=== PATIENT | male | born 1960 | race Caucasian/White ===

== ENCOUNTER 2019-06-01 06:08 | Inpatient (IN) ==
--- NOTE | 2019-05-19 10:16 | PAT Medication Instructions ---
Medication Instructions Date of Service May 19, 2019 Home Medications cyanocobalamin (vitamin B-12) [Vitamin B-12] 1,000 mcg PO QAM dicyclomine 20 mg PO BID docusate sodium 100 mg PO DAILY PRN escitalopram oxalate 20 mg PO QAM linagliptin [Tradjenta] 5 mg PO QAM lorazepam 1 mg PO QAM lorazepam 2 mg PO QPM melatonin 20 mg PO HS metformin 1,000 mg PO BID montelukast 10 mg PO QAM omeprazole 40 mg PO QAM phenylephrine-cocoa butter [Preparation H(pe,cb)] 1 supp [place] BID PRN valacyclovir [Valtrex] 1,000 mg PO DAILY PRN zolpidem 10 mg PO HS Continue as directed valacyclovir [Valtrex] 1,000 mg PO DAILY PRN .(if needed) DO NOT take the morning of surgery cyanocobalamin (vitamin B-12) [Vitamin B-12] 1,000 mcg PO QAM dicyclomine 20 mg PO BID docusate sodium 100 mg PO DAILY PRN linagliptin [Tradjenta] 5 mg PO QAM metformin 1,000 mg PO BID montelukast 10 mg PO QAM phenylephrine-cocoa butter [Preparation H(pe,cb)] 1 supp [place] BID PRN Take morning of surgery With a small sip of water, OTHERWISE NOTHING TO EAT OR DRINK AFTER MIDNIGHT: escitalopram oxalate 20 mg PO QAM lorazepam 1 mg PO QAM omeprazole 40 mg PO QAM Take evening before surgery dicyclomine 20 mg PO BID docusate sodium 100 mg PO DAILY PRN (if needed) lorazepam 2 mg PO QPM melatonin 20 mg PO HS metformin 1,000 mg PO BID phenylephrine-cocoa butter [Preparation H(pe,cb)] 1 supp [place] BID PRN (if needed) zolpidem 10 mg PO HS Other Notes If you have any questions please call us at [phone] or [phone] or [phone] or [phone]
--- NOTE | 2019-05-20 11:50 | Anesthesiology Consultation ---
Date of Service May 20, 2019 Assessment & Plan (1) Encounter for pre-operative examination: - Check BSG AM DOS Chart Review Chart Review: Pending: Refer to Additional Notes / Consult section (pending preop testing (labs, EKG, CXR)) and Patient seen in Pre Admission Testing Teaching & Discussion Pre-Anesthesia Teaching/Discussion Notes: Instructed NPO after midnight before surgery,except medications with 15 cc of water. Medication instructions provided according to the PAT guidelines. History Surgery Operation Date: 06/01/19 10:25 Proposed Procedures p L4-S1 Posterior Lumbar Fusion, Possible L3-L4, Possible Interobdy Fusion, Spinal Cord Monitoring - Dhruv Womack, Height/Weight Height: 5 ft 6 in Weight: 97.4 kg Allergies Allergy/AdvReac Type Severity Reaction Status Date / Time Sulfa (Sulfonamide Allergy Unknown RASH, Verified 05/20/19 11:46 Antibiotics) ELEVATED TEMP, DYSPNEA mesalamine [From Lialda] AdvReac Unknown RASH, Verified 05/20/19 11:46 ELEVATED TEMP, DYSPNEA NSAIDS (Non-Steroidal AdvReac Unknown AVOIDS D/T Verified 05/20/19 11:46 Anti-Inflamma "STOMACH ISSUES" Medications Home Medications Medication Instructions Recorded Confirmed Last Taken cyanocobalamin (vitamin B-12) 1,000 mcg PO QAM 05/11/19 05/11/19 Unknown [Vitamin B-12] dicyclomine 20 mg PO BID 05/11/19 05/11/19 Unknown docusate sodium 100 mg PO DAILY PRN 05/11/19 05/11/19 Unknown escitalopram oxalate 20 mg PO QAM 05/11/19 05/11/19 Unknown linagliptin [Tradjenta] 5 mg PO QAM 05/11/19 05/11/19 Unknown lorazepam 1 mg PO QAM 05/11/19 05/11/19 Unknown lorazepam 2 mg PO QPM 05/11/19 05/11/19 Unknown melatonin 20 mg PO HS 05/11/19 05/11/19 Unknown metformin 1,000 mg PO BID 05/11/19 05/11/19 Unknown montelukast 10 mg PO QAM 05/11/19 05/11/19 Unknown omeprazole 40 mg PO QAM 05/11/19 05/11/19 Unknown phenylephrine-cocoa butter 1 supp [place] BID PRN 05/11/19 05/11/19 Unknown [Preparation H(pe,cb)] valacyclovir [Valtrex] 1,000 mg PO DAILY PRN 05/11/19 05/11/19 Unknown zolpidem 10 mg PO HS 05/11/19 05/11/19 Unknown Past Medical History Medical History Acid reflux controlled Anxiety Chronic back pain Diabetes mellitus, type 2 NIDDM Glaucoma Hiatal hernia 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" Hx of ulcerative colitis stable Obesity Sleep apnea CPAP Urinary urgency Exercise / Class Metabolic Activity III < 4 Walking/Shop/Light housework Past Family History Family History Grandfather (Paternal) Family history of diabetes mellitus Father Family history of diabetes mellitus Other FHx: cancer of digestive organ Past Surgical History Surgical History History of colonoscopy History of meniscectomy of left knee Hx of anterior cruciate ligament surgery LEFT Hx of tonsillectomy Past Anesthesia History No Hx of Anesthesia Complications and No Family Hx of Anesthesia Complications History of PONV No Hx of PONV and No Hx of Motion Sickness Social History Smoking Status: Never smoker Do You Dip or Chew Tobacco: Yes (1-2 boxes/week- advised NPO) Hx Alcohol Use: Yes Alcohol type: beer, wine and hard liquor alcohol intake frequency: holidays/special occasions only Hx Substance Use: No substance use type: does not use Review of Systems Reflux controlled. Patient denies chest pain, shortness of breath, cough, wheezing, palpitations. Physical Exam Vital Signs VITALS BP 142/88 P 86 TEMP 97.8 SP02 98%RA RESP 18 PHYSICAL Full neck and c-spine range of motion. Full TMJ range of motion. TMD 3.5 finger breaths Mallampati Score 1 Dentition: missing sides, upper front cap Lungs: clear throughout to auscultation Cardiac: regular rate and rhythm, no murmurs noted Spine: normal Carotid arteries: negative bruit Extremities: no edema Testing Laboratory Results 05/19/19 UA negative nitrite/leuk esterase URINE CULTURE no growth HGBA1C 6.6%
--- NOTE | 2019-05-20 12:35 | XRay Report ---
XR chest Pre-admission PA/Lat CLINICAL HISTORY: pat preoperative COMPARISON STUDY: No previous studies for comparison. FINDINGS: The bones soft tissues and hemidiaphragms are normal. The cardiomediastinal silhouette is n ormal. The lungs are clear. The pulmonary vasculature is normal. IMPRESSION: Negative chest. The above report was generated using voice recognition software. It may contain grammatical, syntax or spelling errors. Electronically signed by: Timo Lara M.D. 05/20/2019 12:33 PM
[2019-05-20 12:58] LABS: Basophils # (auto) 0.03 K/uL (0-0.2); Basophils % (auto) 0.4 %; Eosinophils # (auto) 0.14 K/uL (0-0.5); Eosinophils % (auto) 1.9 %; Hematocrit (blood only) 41.5 % (42-52); Hemoglobin 13.9 g/dL (14.0-18.0); Immature Granulocytes # (auto) 0.04 K/uL (0.00-0.02); Immature Granulocytes % (auto) 0.6 %; Lymphocytes # (auto) 1.88 K/uL (1.2-3.4); Lymphocytes % (auto) 26.1 %; Mean Corpuscular Hemoglobin 28.8 pg (25-34); Mean Corpuscular Hgb Conc 33.5 g/dL (32-36); Mean Corpuscular Volume 85.9 fL (80-100); Mean Platelet Volume 10.9 fL (7.4-10.4); Monocytes # (auto) 0.58 K/uL (0.11-0.59); Monocytes % (auto) 8.1 %; Neutrophils # (auto) 4.52 K/uL (1.4-6.5); Neutrophils % (auto) 62.9 %; Platelet Count 227 K/uL (130-400); RDW Coefficient of Variation 13.4 % (11.5-14.5); RDW Standard Deviation 42.3 fL (36.4-46.3); Red Blood Count 4.83 M/uL (4.7-6.1); White Blood Count 7.19 K/uL (4.8-10.8)
[2019-05-20 13:06] LABS: BUN Creatinine Ratio 14.8 (10-20); Calcium 9.7 mg/dl (8.5-10.1); Creatinine Clr Calc Pharmacy 81.2 ml/min; Est GFR (African American) 87.6; Est GFR (Non-African American) 75.6; Potassium 4.1 mmol/L (3.5-5.1)
[2019-05-20 13:12] LABS: Partial Thromboplastin Time 25.9 Seconds (21.0-31.0); Prothrombin Time 10.1 Seconds (9.0-12.0)
[~2019-06-01 06:08] MED LIST: ACETAMINOPHEN 500 MG TAB PO SCH; CEFAZOLIN 2000MG 2,000 MG/15 ML SYR IV SCH; CeleBREX 200 MG CAP PO SCH; GABAPENTIN 600 MG DOSE PO SCH; LR 15ML/HR IV SCH
[2019-06-01] MEDS ORDERED: NEOSTIGMINE METHYLSULFATE 1 MG/ML 10ML VIAL ONE (06:42)
[2019-06-01] MEDS ORDERED: GLYCOPYRROLATE 0.2 MG/ML VIAL ONE ×2 (06:42→08:51)
[2019-06-01] MEDS ORDERED: fentaNYL citrate 100 MCG/2 ML VIAL ONE (06:42)
[2019-06-01] MEDS ORDERED: ONDANSETRON INJ 2 MG/ML 2 ML VIAL ONE ×2 (06:42→10:21)
[2019-06-01] MEDS ORDERED: LIDOCAINE HCL 2% 2 ML VIAL/AMP(20MG/ML) INFIL ONE (06:42)
[2019-06-01] MEDS ORDERED: DEXAMETHASONE SOD INJ 4 MG/ML VIAL ONE (06:42)
[2019-06-01] MEDS ORDERED: LARYING-O-JET KIT (LTA) ONE (06:42)
[2019-06-01] MEDS ORDERED: PROPOFOL IV EMULSION 10 MG/ML 20 ML VIAL IV ONE (06:42)
[2019-06-01] MEDS ORDERED: ROCURONIUM BROMIDE 10 MG/ML 5 ML VIAL ONE ×2 (06:42→08:18)
[2019-06-01] MEDS ORDERED: KETAMINE HCL INJ 50 MG/ML 10 ML VIAL ONE (06:43)
[2019-06-01] MEDS ORDERED: HYDROmorphone INJ 2 MG/ML SYR/VIAL ONE (06:43)
[2019-06-01] MEDS ORDERED: MIDAZOLAM HCL 1 MG/ML 2ML VIAL ONE (06:44)
[2019-06-01] MEDS ORDERED: BACITRACIN INJ 50,000 UNIT VIAL ONE (06:53)
[2019-06-01] MEDS ORDERED: BUPIVACAINE/EPINEPHRINE 0.5% MPF 1:200,000 30 ML VIAL ONE (06:54)
--- NOTE | 2019-06-01 07:30 | History & Physical Bridge Note ---
Date of Service June 01, 2019 History & Physical Bridge Note I have examined the patient, reviewed the History & Physical and in the interval since the performance of the History & Physical I have noted the following changes of clinical significance: no changes noted
--- NOTE | 2019-06-01 07:31 | History & Physical Report ---
Date of Service June 01, 2019 Assessment & Plan (1) Spinal stenosis, lumbar region with neurogenic claudication: Posterior lumbar fusion L4-S1 possible L3-L4 possible interbody fusion. Present on Admission?: Yes History of Present Illness Chief Complaint: Back and leg pain Primary Care Provider: Agata Wellington This is a 59-year-old male presents with chronic persistent back and leg pain. After failing extensive course of nonoperative care is here for surgical intervention. Allergies Allergy/AdvReac Type Severity Reaction Status Date / Time Sulfa (Sulfonamide Allergy Unknown RASH, Verified 06/01/19 06:26 Antibiotics) ELEVATED TEMP, DYSPNEA mesalamine [From Lialda] AdvReac Unknown RASH, Verified 06/01/19 06:26 ELEVATED TEMP, DYSPNEA NSAIDS (Non-Steroidal AdvReac Unknown AVOIDS D/T Verified 06/01/19 06:26 Anti-Inflamma "STOMACH ISSUES" Home Medications Home Medications Medication Instructions Recorded Confirmed Type cyanocobalamin (vitamin B-12) 1,000 mcg PO QAM 05/11/19 06/01/19 History [Vitamin B-12] dicyclomine 20 mg PO BID 05/11/19 06/01/19 History docusate sodium 100 mg PO DAILY PRN 05/11/19 06/01/19 History escitalopram oxalate 20 mg PO QAM 05/11/19 06/01/19 History linagliptin [Tradjenta] 5 mg PO QAM 05/11/19 06/01/19 History lorazepam 1 mg PO QAM 05/11/19 06/01/19 History lorazepam 2 mg PO QPM 05/11/19 06/01/19 History melatonin 20 mg PO HS 05/11/19 06/01/19 History metformin 1,000 mg PO BID 05/11/19 06/01/19 History montelukast 10 mg PO QAM 05/11/19 06/01/19 History omeprazole 40 mg PO QAM 05/11/19 06/01/19 History phenylephrine-cocoa butter 1 supp [place] BID PRN 05/11/19 06/01/19 History [Preparation H(pe,cb)] valacyclovir [Valtrex] 1,000 mg PO DAILY PRN 05/11/19 06/01/19 History zolpidem 10 mg PO HS 05/11/19 06/01/19 History fluticasone propionate [Flonase 2 spray INTRANASAL DAILY 06/01/19 06/01/19 History Allergy Relief] Past Med/Surg History Medical History Acid reflux controlled Anxiety Chronic back pain Diabetes mellitus, type 2 NIDDM Glaucoma Hiatal hernia History of West Nile virus infection 2004 in "remission" Hx of ulcerative colitis stable Obesity Sleep apnea CPAP Urinary urgency Surgical History History of colonoscopy History of meniscectomy of left knee Hx of anterior cruciate ligament surgery LEFT Hx of tonsillectomy Family History Grandfather (Paternal) Family history of diabetes mellitus Father Family history of diabetes mellitus Other FHx: cancer of digestive organ Social History Preferred Language: [place] Communication Ability: Effective Beliefs That Will Affect Care: None Current Living Situation: Spouse Feels Safe at Home: Yes Safety Concerns: Feels Safe At This Time Smoking Status: Never smoker Do You Dip or Chew Tobacco: Yes (1-2 boxes/week- advised NPO) ; Second Hand Exposure: Yes (SOME - SON LIVES WITH THEM) ; Hx Alcohol Use: Yes Alcohol type: beer, wine and hard liquor Hx Substance Use: No Physical Exam Physical Exam: Patient is alert and oriented neurologically intact. Results & Data Vital Signs (Past 12 Hours) Vital Signs Temp Pulse Resp BP Pulse Ox 06/01/19 06:30 36.9 C 87 18 138/89 96
[2019-06-01] MEDS ORDERED: FLOSEAL HEMOSTATIC MATRIX 5ML TOP ONE (08:05)
[2019-06-01] MEDS ORDERED: BUPIVACAINE/EPINEPHRINE 0.25% 1:200,000 30 ML VIAL INJ ONE (08:15)
[2019-06-01] MEDS ORDERED: BUPIVACAINE/EPINEPHRINE 0.5% MPF 1:200,000 10 ML VIAL INJ ONE (08:22)
[2019-06-01] MEDS ORDERED: PHENYLEPHRINE 100MCG/ML 5ML SYR ONE (08:51)
--- NOTE | 2019-06-01 09:52 | Operative Report ---
Post Operative Report Pre & Post Diagnosis Operation Date: 06/01/19 07:45 Pre-Op Diagnosis: Lumbar spinal stenosis with neurogenic claudication. Lumbar spondylolisthesis L5-S1 Post-Op Diagnosis: Same I identified the patient and participated in the time-out.: Yes Procedure Operation Date: 06/01/19 07:45 Actual Procedures #1 lumbar decompression with bilateral medial facetectomies and foraminotomies L3-4 L4-5 L5-S1. #2 posterior spinal fusion L4-5 L5-S1. #3 placement posterior instrumentation L4-5 L5-S1. #4 interbody fusion L4-5 L5-S1. #5 placed a peek cage 12 x 26 mm at L4-5 and 11 x 26 mm at L5-S1. #6 placement of local autograft in the posterior lateral gutters. #7 placement infuse collagen sponge bone mass graft in the posterior lateral gutters and ostial amp and interbody space. Surgeon Dhruv Womack, DO Bulldozer/Loader/Compactor/Scraper Michelle Carvalho Estimated Blood Loss 300 Findings See Below The patient is 5 foot 6 inches tall weighing over 97 kg with a BMI in excess of 34. Patient's body habitus did add significant technical difficulty out throughout the procedure and at least 25% increase in operative time. Specimens None Indications This is a 59-year-old male presents with above-mentioned diagnosis after failing extensive course of nonoperative care is here for surgical intervention. Description of Procedure Patient was met with identified and informed consent obtained. Patient was then taken to the operative suite underwent intubation placed in a prone position on the Joseph table on top of the Bobo frame. All bony prominences well-padded eyes inspected to ensure no external pressure placed upon. This point lumbar spine was prepped and draped in normal sterile fashion. Sharp dissection with the assistance of Bovie cautery was performed down to and exposing the lamina and transverse processes of L4-L5 and the sacral ala bilaterally. From a caudal cephalad fashion complete laminectomy of L5 L4 and partial laminectomy of L3 was performed including medial facetectomies and foraminotomies addressing severe stenosis. Pedicle screws were then placed in L4 and L5 and S1 levels bilaterally with assistance of fluoroscopy the purposes milan placed. By way of a trans-foraminal approach on the left complete discectomy of L5-S1 is performed endplates curetted to subcortical bleeding bone and a 11 x 26 mm peek cage filled with ostium bone graft tapped in position. Then proceeded to L4-[address] of a trans-foraminal approach on the left complete discectomy was performed endplates curetted to subcortical being bone and a 12 x 26 mm peek cage filled with ostium bone graft tapped in position. The rods were then alli d in final position bilaterally. The transverse processes of L4-L5 and S1 levels burred to subcortical being bone. Infuse collagen sponge master graft and local autograft placed in the posterior lateral gutters. 15 round GAMAL drain inserted. The incision was then closed with 1 Vicryl in the fascia 2-0 Vicryl substantially and 4 Monocryl for final skin closure. Steri-Strips dressings placed. Patient awakened taken to PACU stable condition. Please note spinal cord monitoring was utilized that the procedure no changes noted. Lastly Michelle Carvalho was present all the entire procedure involved in patient positioning complex portions of the surgery and final skin closure. I attest to the content of the Intraoperative Record and any orders documented therein. Any exceptions are noted below.
--- NOTE | 2019-06-01 09:57 | Fluoroscopy Report ---
FL lumbar spine 2-3V CLINICAL HISTORY: L4-S1 FUSION POSSIBLE L3-L4 COMPARISON STUDY: None FLUOROSCOPY TIME: 34 seconds. NUMBER OF FLUOROSCOPIC IMAGES: 2 FINDINGS: There are postsurgical changes of an L4-5 and L5-S1 discectomy and interbody fusion. There is posterior pedicle screw fixation. There is a grade 1 spondylolisthesis of L5 on S1. There is a rad iopaque density projects over the surgical site, possibly secondary to a sponge. IMPRESSION: Postsurgical changes of an L4-S1 spinal decompression and fusion. Electronically signed by: Aldo Nava M.D. 06/01/2019 9:56 AM
[2019-06-01] MEDS ORDERED: ONDANSETRON INJ 2 MG/ML 2 ML VIAL IV PRN ×2 (10:21→11:20)
[2019-06-01] MEDS ORDERED: HYDROmorphone INJ 1 MG/ML SYRINGE ONE (10:21)
[2019-06-01] MEDS ORDERED: LABETALOL HCL IV 5 MG/ML 20ML IV PRN (10:21)
[2019-06-01] MEDS ORDERED: PROMETHAZINE HCL 12.5 MG in SODIUM CHLORIDE 0.9% 50 ML IV PRN ×2 (10:21→11:20)
[2019-06-01] MEDS ORDERED: ATROPINE SULFATE 0.1 MG/ML 10ML SYR IV PRN (10:21)
[2019-06-01] MEDS: HYDROmorphone INJ 1 MG/ML SYRINGE IV PRN ×2 (10:22→10:27)
--- NOTE | 2019-06-01 10:47 | Anesthesiology Progress Note ---
Date of Service June 01, 2019 Anesthesia Post Procedure Vital Signs Vital Signs: Temp Pulse Pulse Resp BP BP Pulse Ox 06/01/19 10:40 36.6 C 95 H 13 136/91 96 06/01/19 10:30 92 H 16 137/94 98 06/01/19 10:20 88 17 138/86 95 06/01/19 10:10 90 17 126/88 98 06/01/19 10:03 37.2 C 83 15 126/71 97 06/01/19 06:30 36.9 C 87 18 138/89 96 Pain Intensity Lower Back: Pain Intensity: 3 Back: Pain Intensity: 5 Transfer of Care Handoff Completed per policy Notes Mental Status: alert / awake / arousable Patient Amnestic to Procedure: Yes Nausea / Vomiting: adequately controlled Pain: adequately controlled Airway Patency, RR, SpO2: stable & adequate BP & HR: stable & adequate Hydration State: stable & adequate Anesthetic Complications: no major complications apparent
[2019-06-01] MEDS ORDERED: MAGNESIUM HYDROXIDE SUSP 30 ML UDC PO PRN (11:20)
[2019-06-01] MEDS ORDERED: bisacodyL 10 MG SUPP PR PRN (11:20)
[2019-06-01] MEDS ORDERED: LORazepam 0.5 MG/1 ML VIAL IV PRN (11:20)
[2019-06-01] MEDS ORDERED: HYDROmorphone INJ 0.5 MG/0.5 ML SYR IV PRN (11:20)
[2019-06-01] MEDS ORDERED: ONDANSETRON 4 MG OD TAB PO PRN (11:20)
[2019-06-01] MEDS ORDERED: HYDROmorphone INJ 1 MG/ML SYRINGE IV PRN (11:20)
[2019-06-01] MEDS ORDERED: SOD PHOSPHATE/SOD BIPHOSPHATE ENEMA 132 ML BTL PR PRN (11:20)
[2019-06-01] MEDS ORDERED: FAMOTIDINE 20 MG TAB PO PRN (11:20)
[2019-06-01] MEDS ORDERED: ALUMINUM/MAGNESIUM SUSP 30 ML UDC PO PRN (11:20)
[2019-06-01] MEDS ORDERED: DO NOT ADMINISTER FLU VACCINE PRN (11:20)
[2019-06-01] MEDS ORDERED: ACETAMINOPHEN 500 MG TAB PO PRN (11:20)
[2019-06-01] MEDS ORDERED: DO NOT ADMINISTER PNEUMOCOCCAL VACCINE PRN (11:20)
[2019-06-01] MEDS ORDERED: ACETAMINOPHEN 1,000 MG/100 ML VIAL IV PRN (11:20)
[2019-06-01] MEDS ORDERED: LORazepam 0.5 MG TAB PO PRN (11:20)
[2019-06-01] MEDS ORDERED: METOCLOPRAMIDE HCL INJ 5 MG/ML 2 ML VIAL IV PRN (11:20)
[2019-06-01] MEDS ORDERED: NALOXONE HCL 0.4 MG/1 ML VIAL/CARP IV PRN (11:20)
[2019-06-01] MEDS ORDERED: PHARMACY GLYCEMIC MGMT CONSULT PRN (12:01)
--- NOTE | 2019-06-01 12:16 | Pharmacy Report ---
Glycemic Control Consultation - Date of Service June 01, 2019 - Scope Scope: Glycemic Pharmacist consulted for glycemic control and to write orders per [facility] inpatient glycemic control protocol - Objective Weight: 97.386 kg Accuchecks BSG (last 24hrs): 06/01/19 06/01/19 06:37 10:05 POC Glucose 111 H 221 H - Recent Pertinent Medications Outpatient Anti-diabetic Regimen: * Metformin 1 g po BID * Linagliptin 5 mg po qAM * A1c ordered for 06/02/19 Risk Factors for Insulin Resistance: * Steroids: dexamethasone 8 mg IV preop (vended @ 0642 and not returned to [email or web address] therefore assume was administered) * Infection: cefazolin periop * Recent Surgery: POD 0 s/p lumbar decompression/fusion * Diet: T2DM - Assessment & Plan Assessment & Plan: ASSESSMENT: * 59 yo M with T2DM with unknown outpatient control on two oral agents as an outpatient * Pt is maintained on oral antidiabetic agents as an outpatient * Oral agents are not recommended for inpatient use d/t drug interactions, changing PO intake, and difficulty titrating for acute hyper/hypoglycemia. ADA recommends re-initiating outpatient oral agents 1-2 days prior to discharge if/when appropriate if they were held on admission. * Will hold oral agents for admission and utilize SQ basal bolus insulin regimen which is the recommended regimen for inpatient glycemic control. * Will utilize more stringent goal of 110-140mg/dL as tighter glycemic control is warranted to facilitate wound/infection healing. * Steroid dose this AM anticipated to increase insulin resistance (in addition to physiologic stress due to surgery) * Will initiate Lantus at 0.2 units/kg x1 and provide supplemental Lantus this PM for BSG > 140 mg/dL * Will initiate Novolog at weight-based moderate stress estimate and add an overnight check PLAN FOR INPATIENT GLYCEMIC CONTROL: * Hold outpatient oral diabetes medications. Anticipate ability to resume metformin on POD 2, assuming SCr OK. * Basal insulin: Lantus 20 units SC x1 now. Additional tonight based on BSG. * 0 units for BSG less than 140 mg/dL * 5 units for BSG 140-180 mg/dL * 10 units for BSG 180 mg/dL or greater * Bolus insulin * NovoLog per scale ACHS or Q6hrs while NPO with one overnight check * Goal Range: Low 110 mg/dL - High 140 mg/dL * Correction Factor: 25 mg/dL/unit * Nutritional / Prandial insulin per carb ratio of 1 unit per 8 grams CHO consumed * Please note that the plan above was derived based on current level of insulin resistance and hospital stress. These recommendations are appropriate for inpatient admission only. Plan of care upon discharge will need to be reassessed to avoid potential outpatient hypo/hyperglycemia. Thank you.
[2019-06-01] MEDS ORDERED: CARBOHYDRATES FOR HYPOGLYCEMIA PO PRN (12:30)
[2019-06-01] MEDS ORDERED: DEXTROSE 50% 50 ML SYRINGE IV PRN (12:30)
[2019-06-01] MEDS ORDERED: GLUCOSE 40% GEL 15 GM TUBE PO PRN (12:30)
[2019-06-01] MEDS ORDERED: GLUCOSE 10 TABS/TUBE PO PRN (12:30)
[2019-06-01] MEDS ORDERED: INSULIN GLARGINE SOLOSTAR 100 UNITS/ML 3 ML PEN SC ONE ×2 (12:30→21:00)
[2019-06-01] MEDS ORDERED: GLUCAGON FOR INJ 1 MG VIAL IM PRN (12:30)
[2019-06-01] MEDS: OXYCODONE HCL IR 5 MG TAB (IMMEDIATE RELEASE) PO PRN ×3 (12:55→23:32)
[2019-06-01] MEDS: SODIUM CHLORIDE 0.9% 1000ML 1,000 ML IV SCH ×2 (12:55→21:33)
[2019-06-01] MEDS: INSULIN ASPART 100 UNITS/ML 3 ML PEN SC SCH ×3 (13:39→21:20)
--- NOTE | 2019-06-01 14:41 | Consultation ---
Date of Consultation June 01, 2019 Assessment & Plan (1) Spinal stenosis, lumbar region with neurogenic claudication: s/p lumbar decompression-fusion procedure by Dr Womack today. EBL ~300cc per the op note. Defer pain management, PT/OT, disposition, etc to Dr Womack's team. Agree with labs in am. Agree with miralax for bowel regimen (pt is distended on exam today but will follow for now; no nausea/emesis thus far). PT, OT as ordered. (2) NEYMAR (obstructive sleep apnea): Pt brought home CPAP in - I placed order to allow such. (3) DM w/o complication type II: Pharmacy consulted by Dr Womack's team for glycemic management. Oral agents held. A1C pending for the am. Anticipate high BSGs minimum 24 hours due to steroids, perioperative stress, etc. (4) Obesity (BMI 30-39.9): BMI 34.7. (5) Benzodiazepine dependence: PDMP shows he receives #90 of 1mg ativan tabs each month. Continue usual home regimen. (6) Restless leg syndrome: Check iron studies in am. Acute blood loss anemia will make RLS symptoms worse. 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 (8) GERD (gastroesophageal reflux disease): Cont PPI (9) Mood disorder: Lexapro 20mg daily. Ativan BID. (10) DVT prophylaxis: TEDS/SCDs Thank you for the consult. Will follow with you. History of Present Illness Requesting Physician: Maxwell Womack DO Reason for Consultation: post-op medical [place] Attending Physician: Dhruv Womack DO History of Present Illness 59yo male with T2DM, NEYMAR, obesity, chronic benzodiazepine use, and ulcerative colitis currently not on treatment who presented today for elective lumbar back surgery by Dr Womack. Surgery went well and EBL was ~300cc. Patient states that his pre-op b/l leg pain and foot pain are already better. He c/o "fatigue" in his back but no other complaints. Denies cp, dyspnea, cough, abd pain, nausea or vomiting. He asks numerous questions about his post-op course, when he can move/walk, etc. He is hopeful he can return home at discharge. He brought his CPAP from home. Allergies Allergy/AdvReac Type Severity Reaction Status Date / Time Sulfa (Sulfonamide Allergy Unknown RASH, Verified 11/04/19 06:26 Antibiotics) ELEVATED TEMP, DYSPNEA mesalamine [From Lialda] AdvReac Unknown RASH, Verified 06/01/19 06:26 ELEVATED TEMP, DYSPNEA NSAIDS (Non-Steroidal AdvReac Unknown AVOIDS D/T Verified 06/01/19 06:26 Anti-Inflamma "STOMACH ISSUES" Home Medications Home Medications Medication Instructions Recorded Confirmed Type cyanocobalamin (vitamin B-12) 1,000 mcg PO QAM 05/11/19 06/01/19 History [Vitamin B-12] dicyclomine 20 mg PO BID 05/11/19 06/01/19 History docusate sodium 100 mg PO DAILY PRN 05/11/19 06/01/19 History escitalopram oxalate 20 mg PO QAM 05/11/19 06/01/19 History linagliptin [Tradjenta] 5 mg PO QAM 05/11/19 06/01/19 History lorazepam 1 mg PO QAM 05/11/19 06/01/19 History lorazepam 2 mg PO QPM 05/11/19 06/01/19 History melatonin 20 mg PO HS 05/11/19 06/01/19 History metformin 1,000 mg PO BID 05/11/19 06/01/19 History montelukast 10 mg PO QAM 05/11/19 06/01/19 History omeprazole 40 mg PO QAM 05/11/19 06/01/19 History phenylephrine-cocoa butter 1 supp ID BID PRN 05/11/19 06/01/19 History [Preparation H(pe,cb)] valacyclovir [Valtrex] 1,000 mg PO DAILY PRN 05/11/19 06/01/19 History zolpidem 10 mg PO HS 05/11/19 06/01/19 History fluticasone propionate [Flonase 2 spray INTRANASAL DAILY 06/01/19 06/01/19 History Allergy Relief] Patient History Medical History Anxiety Chronic back pain Diabetes mellitus, type 2 NIDDM Glaucoma Hiatal hernia 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" Hx of ulcerative colitis stable Restless leg syndrome Sleep apnea CPAP Urinary urgency Acid reflux controlled Obesity Surgical History History of colonoscopy History of meniscectomy of left knee Hx of anterior cruciate ligament surgery LEFT Hx of tonsillectomy Family History Grandfather (Paternal) Family history of diabetes mellitus Father Family history of diabetes mellitus Liver cancer Coronary heart disease Carotid artery disease Mother Alzheimer disease Social History Preferred Language: Grenadian Communication Ability: Effective Beliefs That Will Affect Care: None marital status: Current Living Situation: Spouse Current Living Situation Comment: lives in [place] with ; 2 sons current occupational status: retired current occupation: formerly owned [employer] Feels Safe at Home: Yes Safety Concerns: Feels Safe At This Time Smoking Status: Never smoker Do You Dip or Chew Tobacco: Yes (1-2 boxes/week) ; Second Hand Exposure: Yes (SOME - SON LIVES WITH THEM) ; Hx Alcohol Use: Yes Alcohol type: beer, wine and hard liquor Alcohol Intake Frequency: Holidays/Special Occasions Hx Substance Use: No Review of Systems Constitutional: no fever, no fatigue and no anorexia Eyes: no worsening vision Ear, Nose, Mouth, Throat: no dysphagia Respiratory: no cough, no dyspnea and no dyspnea on exertion Cardiovascular: no chest pain Gastrointestinal: + bloating; no abdominal pain, no nausea and no vomiting Genitourinary: no dysuria Musculoskeletal: + back pain Integumentary: no rash Neurologic: no numbness Psychiatric: + abnormal sleep pattern Endocrine: diabetic - on oral agents only Physical Exam Constitutional: well developed, well nourished and + obese; no acute distress and no altered mental status Eyes: PERRL (lens implants b/l ) ENMT: external ear and nose normal, oropharynx normal tobacco/chew staining on oral mucosa Neck: trachea midline, no thyromegaly prominent submandibular glands b/l Respiratory: normal respiratory effort, lungs clear to auscultation Cardiovascular: Rate/Rhythm: regular rhythm and + tachycardic (borderline) Heart Sounds: normal S1 and normal S2; no murmur Vessels: posterior tibial pulses present and dorsalis pedis pulses present; no JVD Extremities: no edema Gastrointestinal (Abdomen): Inspection/Auscultation: + abdomen distended; + abnormal bowel sounds (decreased) Percussion/Palpation: abdomen nontender and no hepatosplenomegaly Musculoskeletal: SCDs in place on legs; dressings intact with GAMAL drain in place to lumbar spine Skin: no rashes, warm and dry Neurologic: moves all extremities; no focal motor deficits reflexes brisk - patellar Psychiatric: A+Ox3, euthymic affect Lymphatic: no cervical lymphadenopathy Results & Data Vital Signs (Past 12 Hours) Vital Signs Temp Pulse Pulse Pulse Resp BP BP 06/01/19 14:01 97 H 16 123/77 06/01/19 12:57 103 H 16 128/86 06/01/19 11:53 97 H 16 146/94 H 06/01/19 11:26 95 H 16 146/91 H 06/01/19 10:40 36.6 C 95 H 13 136/91 06/01/19 10:30 92 H 16 137/94 06/01/19 10:20 88 17 138/86 06/01/19 10:10 90 17 126/88 06/01/19 10:03 37.2 C 83 15 126/71 06/01/19 06:30 36.9 C 87 18 138/89 Pulse Ox 06/01/19 14:01 98 06/01/19 12:57 98 06/01/19 11:53 98 06/01/19 11:26 97 06/01/19 10:40 96 06/01/19 10:30 98 06/01/19 10:20 95 06/01/19 10:10 98 06/01/19 10:03 97 06/01/19 06:30 96 Laboratory Results Laboratory Results - last 24 hr 06/01/19 06/01/19 06/01/19 06:29 06:37 10:05 POC Glucose 111 H 221 H Blood Type A Positive Antibody Screen NEGATIVE Crossmatch See Detail 06/01/19 12:11 POC Glucose 227 H Blood Type Antibody Screen Crossmatch Diagnostic Findings cxr - preop - no infiltrates ekg - preop - NSR, IRBBB, no ST changes PG Care Time/CCT Total # of Minutes Spent Total Time Spent with Patient: Total time spent is greater than 50% in coordinat ion of care (as documented) at patient's floor/unit and/or counseling patient: (1) DM w/o complication type II Diabetes mellitus ocean transportation intermediary insulin use: without custodial use Qualified Code(s): E11.9 - Type 2 diabetes mellitus without complications (2) Chewing tobacco nicotine dependence Substance use status: uncomplicated Qualified Code(s): F17.220 - Nicotine dependence, chewing tobacco, uncomplicated (3) GERD (gastroesophageal reflux disease) Esophagitis presence: esophagitis presence not specified Qualified Code(s): K21.9 - Gastro-esophageal reflux disease without esophagitis
[2019-06-01] MEDS: TRAMADOL HCL 50 MG TABLET PO PRN (16:10)
[2019-06-01] MEDS: CEFAZOLIN 2000MG 2,000 MG/15 ML SYR IV SCH ×2 (16:11→23:32)
[2019-06-01] MEDS ORDERED: NON-FORMULARY MEDICATION (Melatonin 20 MG) PO SCH (21:00)
[2019-06-01] MEDS: DOCUSATE SODIUM/SENNA 50/8.6MG TAB PO SCH (21:15)
[2019-06-01] MEDS: DICYCLOMINE HCL 10 MG CAP PO SCH (21:17)
[2019-06-01] MEDS: LORazepam 1 MG TAB PO SCH (21:25)
[2019-06-01] MEDS: ZOLPIDEM TARTRATE 10 MG TAB PO SCH (21:25)
[2019-06-02] MEDS ORDERED: INSULIN ASPART 100 UNITS/ML 3 ML PEN SC ONE (02:00)
[2019-06-02] MEDS: OXYCODONE HCL IR 5 MG TAB (IMMEDIATE RELEASE) PO PRN ×4 (03:59→18:10)
[2019-06-02] MEDS: POLYETHYLENE (MIRALAX) 17 GM PACK PO SCH ×3 (05:12→17:20)
[2019-06-02 05:20] LABS: Basophils # (auto) 0.01 K/uL (0-0.2); Basophils % (auto) 0.1 %; Eosinophils # (auto) 0.01 K/uL (0-0.5); Eosinophils % (auto) 0.1 %; Hematocrit (blood only) 34.8 % (42-52); Hemoglobin 11.8 g/dL (14.0-18.0); Immature Granulocytes # (auto) 0.06 K/uL (0.00-0.02); Immature Granulocytes % (auto) 0.4 %; Lymphocytes # (auto) 1.92 K/uL (1.2-3.4); Lymphocytes % (auto) 11.9 %; Mean Corpuscular Hemoglobin 28.5 pg (25-34); Mean Corpuscular Hgb Conc 33.9 g/dL (32-36); Mean Corpuscular Volume 84.1 fL (80-100); Monocytes # (auto) 1.77 K/uL (0.11-0.59); Neutrophils # (auto) 12.38 K/uL (1.4-6.5); Neutrophils % (auto) 76.5 %; Platelet Count 235 K/uL (130-400); RDW Coefficient of Variation 13.2 % (11.5-14.5); RDW Standard Deviation 39.8 fL (36.4-46.3); Red Blood Count 4.14 M/uL (4.7-6.1); White Blood Count 16.15 K/uL (4.8-10.8)
[2019-06-02 05:43] LABS: Estimated Average Glucose 151 mg/dl; Hemoglobin A1C 6.9 % (4.5-5.6)
[2019-06-02 05:52] LABS: Creatinine Clr Calc Pharmacy 83.5 ml/min; Est GFR (African American) 90.7; Est GFR (Non-African American) 78.2; Potassium 4.1 mmol/L (3.5-5.1)
[2019-06-02 05:59] LABS: Ferritin 310.1 ng/ml (8-388)
--- NOTE | 2019-06-02 07:59 | Anesthesiology Progress Note ---
Date of Service June 02, 2019 Anesthesia Post Procedure Vital Signs Vital Signs: Temp Pulse Pulse Resp BP Pulse Ox 06/02/19 07:13 36.9 C 101 H 16 135/80 98 06/02/19 03:48 36.8 C 104 H 17 143/76 H 95 06/01/19 23:37 37.3 C 98 H 18 144/82 H 95 06/01/19 15:25 36.9 C 106 H 16 135/88 96 06/01/19 14:01 97 H 16 123/77 98 06/01/19 12:57 103 H 16 128/86 98 06/01/19 11:53 97 H 16 146/94 H 98 06/01/19 11:26 95 H 16 146/91 H 97 06/01/19 10:40 36.6 C 95 H 13 136/91 96 06/01/19 10:30 92 H 16 137/94 98 06/01/19 10:20 88 17 138/86 95 06/01/19 10:10 90 17 126/88 98 06/01/19 10:03 37.2 C 83 15 126/71 97 Pain Intensity Lower Back: Pain Intensity: 3 Back: Pain Intensity: 5 Notes Mental Status: alert / awake / arousable and participated in evaluation Patient Amnestic to Procedure: Yes Nausea / Vomiting: adequately controlled Pain: adequately controlled Airway Patency, RR, SpO2: stable & adequate BP & HR: stable & adequate Hydration State: stable & adequate Anesthetic Complications: no major complications apparent and Pt Satisfied with anesthetic care
[2019-06-02] MEDS: MONTELUKAST SODIUM 10 MG TABLET PO SCH (08:12)
[2019-06-02] MEDS: PANTOprazole 40 MG TAB PO SCH (08:12)
[2019-06-02] MEDS: CYANOCOBALAMIN 500 MCG TABLET (VITAMIN B-12) PO SCH (08:12)
[2019-06-02] MEDS: DICYCLOMINE HCL 10 MG CAP PO SCH ×2 (08:13→20:05)
[2019-06-02] MEDS: LORazepam 1 MG TAB PO SCH ×2 (08:13→20:54)
[2019-06-02] MEDS: FLUTICASONE PROPIONATE NA SPR 16 GM BTL SCH (08:13)
[2019-06-02] MEDS: ESCITALOPRAM OXALATE 10 MG TAB PO SCH (08:13)
[2019-06-02] MEDS: INSULIN ASPART 100 UNITS/ML 3 ML PEN SC SCH ×4 (08:16→20:51)
[2019-06-02] MEDS ORDERED: INSULIN GLARGINE SOLOSTAR 100 UNITS/ML 3 ML PEN SC ONE ×2 (08:30→21:00)
--- NOTE | 2019-06-02 10:14 | Orthopedic Progress Note ---
Date of Service June 02, 2019 Assessment & Plan (1) Spinal stenosis, lumbar region with neurogenic claudication: At this time we will continue physical therapy monitor his GAMAL output. We are had a discussion with him regarding discharge to a nursing facility versus home health. We will determine his next few days. He is comfortable with home health if this is the best option. Present on Admission?: Yes Subjective Patient's back pain is controlled leg symptoms improved. Physical Exam Physical Exam: Patient is in the chair at the bedside. Is good strength testing. Appears comfortable. Results & Data Vital Signs (Past 12 Hours) Vital Signs Temp Pulse Resp BP Pulse Ox 06/02/19 07:13 36.9 C 101 H 16 135/80 98 06/02/19 03:48 36.8 C 104 H 17 143/76 H 95 06/01/19 23:37 37.3 C 98 H 18 144/82 H 95
--- NOTE | 2019-06-02 12:45 | Hospitalist Progress Note ---
Date of Service June 02, 2019 Assessment & Plan (1) Spinal stenosis, lumbar region with neurogenic claudication: - S/p lumbar decompression-fusion procedure by Dr Womack on 06/01, POD#1. - Pain management per primary team. - PT/OT evaluation for discharge planning. - Bowel regimen. (2) NEYMAR (obstructive sleep apnea): - Uses CPAP at home -- continue use as inpatient. (3) DM w/o complication type II: - A1C was 6.9; holding home oral agents. - SSI coverage as inpt with pharmacy management. (4) Obesity (BMI 30-39.9): - BMI 34.7 - encourage weight loss and exercise. (5) Benzodiazepine dependence: - PDMP shows he receives #90 of 1mg ativan tabs each month. - Continue home meds. (6) Restless leg syndrome: - Iron studies were WNL. - Consider initiating meds for RLS as outpatient. (7) Chewing tobacco nicotine dependence: - Encouraged tobacco cessation. (8) GERD (gastroesophageal reflux disease): - PPI daily. (9) Mood disorder: - Lexapro 20 mg daily. (10) DVT prophylaxis: - SCDs; pharmacologic ppx per ortho. Dispo: Med/surg; will sign off, please call with any questions. Supervising Physician Co-Signing Physician Notes PA Supervision Note: I did not personally see or examine the patient today, but I verified all patricia points of PAVITHRA Auguste's assessment and plan with the following exceptions/additions: None Subjective Pt. is doing well overall -- back pain is controlled, has been ambulating. Is passing gas, no BM yet. Is fatigued. Radiculopathy in lower extremities resolved post operatively. Review of Systems Review of Systems: All systems reviewed & are unremarkable except as noted in HPI & below Constitutional: no fever, no chills, no fatigue and no weakness Respiratory: no cough, no dyspnea, no dyspnea on exertion and no wheezing Cardiovascular: no chest pain, no palpitations and no edema Gastrointestinal: + constipation; no abdominal pain, no nausea and no vomiting Genitourinary: no difficulty urinating Musculoskeletal: + back pain; no joint pain Integumentary: no non-healing lesions Physical Exam Physical Exam: General: Resting comfortably HEENT: NC/AT; PERRLA with EOMI; [place] conjunctiva, MMM. No erythema of posterior pharynx Neck: Supple and nontender Cardiac: RRR Lungs: CTA bilaterally Abdomen: Bowel normoactive X 4; Nontender to palpation Back: NO spinous tenderness; dressing intact, no discharge noted; +drain with sanguinous output. Extremities: Warm. No edema present Neuro: No focal weakness Skin: No rash Results & Data Vital Signs (Past 12 Hours) Vital Signs Temp Pulse Resp BP Pulse Ox 06/02/19 07:13 36.9 C 101 H 16 135/80 98 06/02/19 03:48 36.8 C 104 H 17 143/76 H 95 Laboratory Results 06/02/19 06/02/19 06/02/19 Range/Units 12:17 08:11 05:09 WBC 16.15 H (4.8-10.8) K/uL RBC 4.14 L (4.7-6.1) M/uL Hgb 11.8 L (14.0-18.0) g/dL Hct 34.8 L (42-52) % MCV 84.1 (80-100) fL MCH 28.5 (25-34) pg MCHC 33.9 (32-36) g/dL RDW Std Deviation 39.8 (36.4-46.3) fL RDW Coeff of Carlota 13.2 (11.5-14.5) % Plt Count 235 (130-400) K/uL MPV 10.0 (7.4-10.4) fL Immature Gran % (Auto) 0.4 % Neut % (Auto) 76.5 % Lymph % (Auto) 11.9 % Clarke % (Auto) 11.0 % Eos % (Auto) 0.1 % Baso % (Auto) 0.1 % Immature Gran # (Auto) 0.06 H (0.00-0.02) K/uL Neut # (Auto) 12.38 H (1.4-6.5) K/uL Lymph # (Auto) 1.92 (1.2-3.4) K/uL Clarke # (Auto) 1.77 H (0.11-0.59) K/uL Eos # (Auto) 0.01 (0-0.5) K/uL Baso # (Auto) 0.01 (0-0.2) K/uL Sodium (136-145) mmol/L Potassium (3.5-5.1) mmol/L Chloride (98-107) mmol/L Carbon Dioxide (21-32) mmol/L Anion Gap (3-11) BUN (7-18) mg/dl Creatinine (0.6-1.4) mg/dl Est Cr Clr Drug Dosing ml/min Est GFR ( Amer) Est GFR (Non-Af Amer) BUN/Creatinine Ratio (10-20) Glucose (70-99) mg/dl POC Glucose 145 H 170 H (70-99) Estimat Average Glucose mg/dl Hemoglobin A1c (4.5-5.6) % Calcium (8.5-10.1) mg/dl Iron (35-175) mcg/dl Transferrin (200-360) mg/dl Transferrin % Sat (20-50) % Ferritin (8-388) ng/ml 06/02/19 06/02/19 06/02/19 Range/Units 05:09 05:09 02:05 WBC (4.8-10.8) K/uL RBC (4.7-6.1) M/uL Hgb (14.0-18.0) g/dL Hct (42-52) % MCV (80-100) fL MCH (25-34) pg MCHC (32-36) g/dL RDW Std Deviation (36.4-46.3) fL RDW Coeff of Carlota (11.5-14.5) % Plt Count (130-400) K/uL MPV (7.4-10.4) fL Immature Gran % (Auto) % Neut % (Auto) % Lymph % (Auto) % Clarke % (Auto) % Eos % (Auto) % Baso % (Auto) % Immature Gran # (Auto) (0.00-0.02) K/uL Neut # (Auto) (1.4-6.5) K/uL Lymph # (Auto) (1.2-3.4) K/uL Clarke # (Auto) (0.11-0.59) K/uL Eos # (Auto) (0-0.5) K/uL Baso # (Auto) (0-0.2) K/uL Sodium 139 (136-145) mmol/L Potassium 4.1 (3.5-5.1) mmol/L Chloride 105 (98-107) mmol/L Carbon Dioxide 27 (21-32) mmol/L Anion Gap 7.0 (3-11) BUN 17 (7-18) mg/dl Creatinine 1.04 (0.6-1.4) mg/dl Est Cr Clr Drug Dosing 83.5 ml/min Est GFR ( Amer) 90.7 Est GFR (Non-Af Amer) 78.2 BUN/Creatinine Ratio 16.0 (10-20) Glucose 144 H (70-99) mg/dl POC Glucose 158 H (70-99) Estimat Average Glucose 151 mg/dl Hemoglobin A1c 6.9 H (4.5-5.6) % Calcium 9.0 (8.5-10.1) mg/dl Iron 43 (35-175) mcg/dl Transferrin 220 (200-360) mg/dl Transferrin % Sat 14 L (20-50) % Ferritin 310.1 (8-388) ng/ml 06/01/19 06/01/19 Range/Units 20:32 17:22 WBC (4.8-10.8) K/uL RBC (4.7-6.1) M/uL Hgb (14.0-18.0) g/dL Hct (42-52) % MCV (80-100) fL MCH (25-34) pg MCHC (32-36) g/dL RDW Std Deviation (36.4-46.3) fL RDW Coeff of Carlota (11.5-14.5) % Plt Count (130-400) K/uL MPV (7.4-10.4) fL Immature Gran % (Auto) % Neut % (Auto) % Lymph % (Auto) % Clarke % (Auto) % Eos % (Auto) % Baso % (Auto) % Immature Gran # (Auto) (0.00-0.02) K/uL Neut # (Auto) (1.4-6.5) K/uL Lymph # (Auto) (1.2-3.4) K/uL Clarke # (Auto) (0.11-0.59) K/uL Eos # (Auto) (0-0.5) K/uL Baso # (Auto) (0-0.2) K/uL Sodium (136-145) mmol/L Potassium (3.5-5.1) mmol/L Chloride (98-107) mmol/L Carbon Dioxide (21-32) mmol/L Anion Gap (3-11) BUN (7-18) mg/dl Creatinine (0.6-1.4) mg/dl Est Cr Clr Drug Dosing ml/min Est GFR ( Amer) Est GFR (Non-Af Amer) BUN/Creatinine Ratio (10-20) Glucose (70-99) mg/dl POC Glucose 203 H 208 H (70-99) Estimat Average Glucose mg/dl Hemoglobin A1c (4.5-5.6) % Calcium (8.5-10.1) mg/dl Iron (35-175) mcg/dl Transferrin (200-360) mg/dl Transferrin % Sat (20-50) % Ferritin (8-388) ng/ml PG Care Time/CCT Total # of Minutes Spent Total Time Spent with Patient: Total time spent is greater than 50% in coor dination of care (as documented) at patient's floor/unit and/or counseling patient: (1) DM w/o complication type II Diabetes mellitus custodial insulin use: without custodial use Qualified Code(s): E11.9 - Type 2 diabetes mellitus without complications (2) Chewing tobacco nicotine dependence Substance use status: uncomplicated Qualified Code(s): F17.220 - Nicotine dependence, chewing tobacco, uncomplicated (3) GERD (gastroesophageal reflux disease) Esophagitis presence: esophagitis presence not specified Qualified Code(s): K21.9 - Gastro-esophageal reflux disease without esophagitis
--- NOTE | 2019-06-02 15:59 | Pharmacy Report ---
Pharmacy Glycemic Short Note 2 - Date of Service June 02, 2019 - Glycemic Short BSG Results (Last 24 hours): 06/01/19 06/01/19 06/02/19 17:22 20:32 02:05 Glucose POC Glucose 208 H 203 H 158 H 06/02/19 06/02/19 06/02/19 05:09 08:11 12:17 Glucose 144 H POC Glucose 170 H 145 H Outpatient Anti-diabetic Regimen: * Metformin 1 g po BID * Linagliptin 5 mg po qAM * A1c ordered for 06/02/19 Risk Factors for Insulin Resistance: * Steroids: dexamethasone 8 mg IV preop yesterday * Infection: cefazolin periop yesterday * Recent Surgery: POD 1 s/p lumbar decompression/fusion * Diet: T2DM ASSESSMENT: * 59 yo M with T2DM with good outpatient control per A1c obtained today on two oral agents as an outpatient * BSG's ranged 145-208 mg/dL over the last 24 hours - better control desired in the immediate post-op period * AM fasting above goal - will increase Lantus slightly * Post-prandial elevations noted yesterday - will tighten CHO ratio slightly * Expect insulin sensitivity to increase tomorrow as steroid effects from yesterday will likely be dissipating. Will likely need to adjust parameters/doses then PLAN FOR INPATIENT GLYCEMIC CONTROL: * Hold outpatient oral diabetes medications. Anticipate ability to resume metformin on POD 2, assuming SCr OK. * Basal insulin: Lantus 25 units SC x1 now. Additional tonight based on BSG. * 0 units for BSG less than 140 mg/dL * 5 units for BSG 140-180 mg/dL * 10 units for BSG 180 mg/dL or greater * Bolus insulin * NovoLog per scale ACHS or Q6hrs while NPO with one overnight check * Goal Range: Low 110 mg/dL - High 140 mg/dL * Correction Factor: 25 mg/dL/unit * Nutritional / Prandial insulin per carb ratio of 1 unit per 7 grams CHO consumed Discharge recommendations * A1c at goal. * Resume home metformin and linagliptin (above)
[2019-06-02] MEDS: DOCUSATE SODIUM/SENNA 50/8.6MG TAB PO SCH (20:05)
[2019-06-02] MEDS: MELATONIN PO SCH (20:06)
[2019-06-02] MEDS: ZOLPIDEM TARTRATE 10 MG TAB PO SCH (20:54)
[2019-06-02] MEDS ORDERED: NON-FORMULARY PATIENT'S OWN MED SCH (21:00)
[2019-06-03] MEDS: POLYETHYLENE (MIRALAX) 17 GM PACK PO SCH ×4 (00:30→17:20)
[2019-06-03] MEDS: OXYCODONE HCL IR 5 MG TAB (IMMEDIATE RELEASE) PO PRN ×3 (05:09→18:07)
[2019-06-03 06:23] LABS: Hemoglobin 12.3 g/dL (14.0-18.0); Mean Corpuscular Hemoglobin 28.4 pg (25-34); Mean Corpuscular Hgb Conc 33.2 g/dL (32-36); Mean Corpuscular Volume 85.5 fL (80-100); Mean Platelet Volume 10.8 fL (7.4-10.4); Platelet Count 225 K/uL (130-400); RDW Coefficient of Variation 13.6 % (11.5-14.5); RDW Standard Deviation 42.2 fL (36.4-46.3); Red Blood Count 4.33 M/uL (4.7-6.1); White Blood Count 13.12 K/uL (4.8-10.8)
[2019-06-03 07:04] LABS: BUN Creatinine Ratio 15.5 (10-20); Calcium 9.4 mg/dl (8.5-10.1); Creatinine Clr Calc Pharmacy 76.9 ml/min; Est GFR (Non-African American) 70.8; Potassium 4.1 mmol/L (3.5-5.1)
[2019-06-03] MEDS: LORazepam 1 MG TAB PO SCH ×2 (08:39→21:11)
[2019-06-03] MEDS: DICYCLOMINE HCL 10 MG CAP PO SCH ×2 (08:40→21:11)
[2019-06-03] MEDS: FLUTICASONE PROPIONATE NA SPR 16 GM BTL SCH (08:40)
[2019-06-03] MEDS: ESCITALOPRAM OXALATE 10 MG TAB PO SCH (08:42)
[2019-06-03] MEDS: PANTOprazole 40 MG TAB PO SCH (08:43)
[2019-06-03] MEDS: CYANOCOBALAMIN 500 MCG TABLET (VITAMIN B-12) PO SCH (08:44)
[2019-06-03] MEDS: MONTELUKAST SODIUM 10 MG TABLET PO SCH (08:44)
[2019-06-03] MEDS ORDERED: INSULIN GLARGINE SOLOSTAR 100 UNITS/ML 3 ML PEN SC ONE ×2 (09:00→21:00)
[2019-06-03] MEDS ORDERED: INSULIN ASPART 100 UNITS/ML 3 ML PEN SC SCH (09:00)
--- NOTE | 2019-06-03 12:44 | Pharmacy Report ---
Pharmacy Glycemic Short Note 2 - Date of Service June 03, 2019 - Glycemic Short BSG Results (Last 24 hours): 06/02/19 06/02/19 06/03/19 17:25 20:19 05:21 Glucose 165 H POC Glucose 159 H 167 H 06/03/19 06/03/19 06/03/19 08:28 08:30 11:57 Glucose POC Glucose 330 H* 315 H* 199 H Outpatient Anti-diabetic Regimen: * Metformin 1 g po BID * Linagliptin 5 mg po qAM * A1c 6.9% on 06/02/19 Risk Factors for Insulin Resistance: * Steroids: dexamethasone 8 mg IV preop on 06/01 * Recent Surgery: POD 2 s/p lumbar decompression/fusion * Diet: T2DM ASSESSMENT: * 59 yo M with T2DM with good outpatient control per A1c on two oral agents as an outpatient * BSG's ranged 159-199 mg/dL over the last 24 hours (not including the BSG's this AM >300 mg/dL, which were erroneous as patient had already consumed a significant amount of CHO prior to obtaining BSG per RN. AM random glucose was 165 mg/dL) * Will only cover CHO with breakfast (no correction based on erroneous resul t) * AM fasting (using random level obtained to estimate) likely above goal - will continue Lantus despite steroid effects dissipating but will decrease dose * Post-prandial BSG's well controlled yesterday. Will slightly loosen CHO ratio 2nd anticipation of steroid effects dissipating PLAN FOR INPATIENT GLYCEMIC CONTROL: * Hold outpatient oral diabetes medications * Basal insulin: Lantus 20 units SC x1 now. Additional tonight based on BSG. * 0 units for BSG less than 140 mg/dL * 5 units for BSG 140-180 mg/dL * 10 units for BSG 180 mg/dL or greater * Bolus insulin * NovoLog per scale ACHS or Q6hrs while NPO with one overnight check * Goal Range: Low 110 mg/dL - High 140 mg/dL * Correction Factor: 25 mg/dL/unit * Nutritional / Prandial insulin per carb ratio of 1 unit per 8 grams CHO consumed Discharge recommendations * A1c at goal. * Resume home metformin and linagliptin (above)
[2019-06-03] MEDS: INSULIN ASPART 100 UNITS/ML 3 ML PEN SC SCH ×3 (13:09→21:13)
[2019-06-03] MEDS: DOCUSATE SODIUM/SENNA 50/8.6MG TAB PO SCH (20:28)
[2019-06-03] MEDS: ZOLPIDEM TARTRATE 10 MG TAB PO SCH (21:11)
[2019-06-03] MEDS: MELATONIN PO SCH (21:12)
[2019-06-04] MEDS: OXYCODONE HCL IR 5 MG TAB (IMMEDIATE RELEASE) PO PRN ×2 (01:46→09:49)
[2019-06-04] MEDS ORDERED: INSULIN ASPART 100 UNITS/ML 3 ML PEN SC SCH (02:00)
--- NOTE | 2019-06-04 07:53 | Discharge Summary ---
Date of Service June 04, 2019 Admission HPI Per Admitting Provider This is a 59-year-old male presents with chronic persistent back and leg pain. After failing extensive course of nonoperative care is here for surgical intervention. Principal Diagnosis Lumbar spinal stenosis with neurogenic claudication Discharge Data Allergies Allergy/AdvReac Type Severity Reaction Status Date / Time Sulfa (Sulfonamide Allergy Unknown RASH, Verified 06/01/19 06:26 Antibiotics) ELEVATED TEMP, DYSPNEA mesalamine [From Lialda] AdvReac Unknown RASH, Verified 06/01/19 06:26 ELEVATED TEMP, DYSPNEA NSAIDS (Non-Steroidal AdvReac Unknown AVOIDS D/T Verified 06/01/19 06:26 Anti-Inflamma "STOMACH ISSUES" Consultations 06/01/19 11:20 Consult Case Management - Discharge Planning Routine 06/01/19 11:32 Consult Hospitalist Routine Procedures Performed Operation Date: 06/01/19 07:45 Actual Procedures p L4-S1 Posterior Lumbar Fusion, Interbody Fusion L4-L5 And L5-S1, Use of Infuse and Osteoamp, Spinal Cord Monitoring(Not Applicable) - Dhruv Womack DO Ordered Studies 06/01/19 07:45 FL fluoroscopy <1hr Routine FL lumbar spine 2-3V Routine Hospital Course (1) Spinal stenosis, lumbar region with neurogenic claudication: Patient with lumbar decompression fusion troll as well as taken to the orthopedic for postoperative. Postop day #1 leg symptoms are markedly improved to initiate physical therapy progressed appropriately throughout the week. GAMAL drain decreasing appropriately. Bowels working well. Neurologically intact on his last day and subsequently discharged home with home health. Discharge orde rs instructions from the chart for further review. Total Time Total Time Spent Total Time Spent (In Minutes): 30 minutes Discharge Plan Discharge Items Patient Disposition: Home - Home Health Services Reason For Visit: LUMBAR SPINAL STENOSIS W/O NEUROGENIC CLAUDICATION Discharge Diagnosis: Lumbar spinal stenosis with neurogenic claudication Activity: As commented below Non-emergency contact: Primary Care Provider Call non-emergency contact if: you have any medication questions Follow-up/Referrals: Agata Wellington M.D. [Primary Care Provider] - Diet: Regular Addtl Attending Provider Instructions: ACTIVITY RECOMMENDATIONS: SELF CARE INSTRUCTIONS AFTER THORACIC/LUMBAR FUSIONS 1. You may walk to your tolerance. It is good exercise for your legs and back. Expect some back and intermittent leg aches and pains. 2. You may perform "counter-top" level activities (make a sandwich, trini with a project, etc.). 3. No bending or lifting of more than 10 pounds or back twisting of any nature (roll like a log when turning in bed). 4. You may ride in a car for 20-30 minutes at a time. No driving until after your first visit with your doctor. 5. Frequent changes of position and restricting sitting to 30 minutes at a time will help limit the amount of back spasms and stiffness you may experience. 6. You may discontinue the use of ambulatory aids (cane, crutches, etc.) once your strength and confidence allow. 7. You may software development coordinator the shower and let water strike your incision when you arrive home at least once daily. Do not take a tub bath, sit in a hot tub or go into a swimming pool until after your first recheck in the office. SPECIAL CARE INSTRUCTIONS: VERY IMPORTANT TO READ AND REVIEW A. Your surgical incision has been closed with a cosmetic suture under the skin that will dissolve in about 6 weeks. In 14 days, you can use a pair of clean scissors and cut the suture that is left outside of the skin at the ends of your incision. 1. The small skin tapes can be removed 7 days after surgery if they have not fallen off by that point. 2. You may keep the wound open to air as much as possible to promote healing after post-op day number 5 unless told otherwise by your doctor. 3. If you think the wound looks like it is becoming infected (redness or worsening drainage) and/or you are experiencing fever, chill or worsening back pain and muscle spasms, contact the office so that we may evaluate you as soon as possible. B. Complications are uncommon, but please contact us if you have any signs or symptoms of: 1. wound infection (fever higher than 102.5 degrees F, redness, separation of wound, drainage, or increasing pain from the incision) 2. blood clots in legs (pain, swelling, redness and warmth in legs) 3. urinary tract infection (fever higher than 102.5 degrees F, burning upon urination or increased frequency of urination) 4. nerve problems (inability to walk on your toes or heels, numbness, loss of bowel or bladder control) 5. any other symptoms that concern you C. Please call the office at if you have any concerns or questions about your operation or recovery. D. No smoking! Smoking drastically decreases the chance of a solid fusion. E. Do not take any anti-inflammatory medications (Indocin, Advil, Motrin, Aspirin, Naprosyn, etc.) as these may inhibit the chance of a solid fusion. Tylenol is okay to take for pain. MANAGING PAIN AFTER SPINAL SURGERY 1. Narcotic medication is intended for short-term use and will be provided for surgical pain. Surgical pain usually lasts for a period of 4-6 weeks. Narcotic medication includes Percocet, Vicodin, Darvocet, Tylenol #3 or Lortab. 2. Longer-term pain is more appropriately treated with non-narcotic medication such as Tylenol ES. 3. Muscle spasm is not appropriately treated with narcotics. Muscle relaxers such as Soma, Flexeril or Skelaxin can be used along with Tylenol ES. 4. Remember that we all live with some "aches and pains". This is not unusual or uncommon after an injury or as we get older. a. Back pain is expected and may include muscle spasms for 4 to 6 weeks after surgery. The pain should gradually improve. If the pain worsens for no apparent reason, please contact the office. b. Intermittent leg pain may also be experienced and should not be concerned about unless it worsens for no apparent reason. If so, please contact the office. 5. We will provide appropriate medication within the normal guidelines of their prescribed use. We will also be very cautious and aware of potential abuse and extended duration of patients' medication needs. a. Pain medications are for your comfort and to assist with sleep and rest so that the tissue can heal. They are not provided in order to return to normal activity and should not be used through the day. To do so or worsening pain at night can result from ongoing tissue damage and development of tolerance to the prescribed medicine. 6. Please allow 2-3 days to process refills. Prescriptions will not be mailed but must be picked up at the office. FOLLOW UP VISIT: Keep your scheduled follow-up appointment. Any questions, please call the office at . Pending Studies at Discharge: No Stand-Alone Forms: [facility], Smoking Cessation Medications and DC Order Prescriptions: New tramadol 50 mg tablet 50 mg PO Q6H PRN (Reason: pain, moderate) Qty: 30 RF: 0 oxycodone 5 mg tablet 5 mg PO Q6H PRN (Reason: pain, severe) Qty: 30 RF: 0 Continued valacyclovir [Valtrex] 1 gram Tablet 1,000 mg PO DAILY PRN (Reason: Cold Sores) RF: 0 cyanocobalamin (vitamin B-12) [Vitamin B-12] 1,000 mcg Tablet 1,000 mcg PO QAM RF: 0 omeprazole 40 mg Capsule,Delayed Release(Dr/Ec) 40 mg PO QAM RF: 0 metformin 1,000 mg Tablet 1,000 mg PO BID RF: 0 montelukast 10 mg Tablet 10 mg PO QAM RF: 0 lorazepam 1 mg Tablet 1 mg PO QAM RF: 0 lorazepam 1 mg Tablet 2 mg PO QPM RF: 0 zolpidem 10 mg Tablet 10 mg PO HS RF: 0 dicyclomine 10 mg Capsule 20 mg PO BID RF: 0 docusate sodium 100 mg Tablet 100 mg PO DAILY PRN (Reason: Constipation) RF: 0 escitalopram oxalate 10 mg Tablet 20 mg PO QAM RF: 0 Tradjenta 5 mg Tablet 5 mg PO QAM RF: 0 melatonin 10 mg Tablet 20 mg PO HS RF: 0 Preparation H(pe,cb) 0.25-88.44 % Suppository 1 supp MS BID PRN (Reason: Hemorrhoids) RF: 0 fluticasone propionate [Flonase Allergy Relief] 50 mcg/actuation [place],Suspension 2 spray INTRANASAL DAILY RF: 0 Discharge Orders: Discharge Order (Routine); Ordered 06/04/19 Ordered By: Dhruv Womack Admission Data Admit Date/Time: 06/01/19 09:56 Attending Provider: Dhurv Womack Admit Provider: Dhruv Womack Primary Care Provider: Agata Wellington Other Providers: Teresa Da Silva
[2019-06-04] MEDS: ESCITALOPRAM OXALATE 10 MG TAB PO SCH (08:38)
[2019-06-04] MEDS: DICYCLOMINE HCL 10 MG CAP PO SCH (08:38)
[2019-06-04] MEDS: FLUTICASONE PROPIONATE NA SPR 16 GM BTL SCH (08:38)
[2019-06-04] MEDS: LORazepam 1 MG TAB PO SCH (08:38)
[2019-06-04] MEDS: MONTELUKAST SODIUM 10 MG TABLET PO SCH (08:39)
[2019-06-04] MEDS: PANTOprazole 40 MG TAB PO SCH (08:39)
[2019-06-04] MEDS: CYANOCOBALAMIN 500 MCG TABLET (VITAMIN B-12) PO SCH (08:39)
[2019-06-04] MEDS: INSULIN ASPART 100 UNITS/ML 3 ML PEN SC SCH (08:44)
[2019-06-04] MEDS ORDERED: INSULIN GLARGINE SOLOSTAR 100 UNITS/ML 3 ML PEN SC ONE (08:45)
[2019-06-04] MEDS: TRAMADOL HCL 50 MG TABLET PO PRN (11:13)
== END 2019-06-04 11:25 | disposition home or self-care (01) | DRG 455 ==
LOC: ASU 06:08 → 3E 09:56